=== PATIENT | male | born 1985 | race African-American/Black ===

== ENCOUNTER 2017-11-28 17:23 | Emergency (ER) | payer SELFPAY | END 2017-11-28 19:15 | disposition home or self-care (01) | LOC: ER 17:23 | DX: S46.912A Strain of unspecified muscle, fascia and tendon at shoulder and upper arm level, left arm, initial encounter (principal); S46.911A Strain of unspecified muscle, fascia and tendon at shoulder and upper arm level, right arm, initial encounter; S39.012A Strain of muscle, fascia and tendon of lower back, initial encounter; F12.10 Cannabis abuse, uncomplicated; V43.52XA Car driver injured in collision with other type car in traffic accident, initial encounter; Y93.I9 Activity, other involving external motion; Y92.410 Unspecified street and highway as the place of occurrence of the external cause; Y99.8 Other external cause status | CPT/HCPCS: 99283 ==